=== PATIENT | female | born 1965 | race Caucasian/White ===

== ENCOUNTER 2017-04-29 18:01 | Emergency (ER) | payer OTHER ==
[~2017-04-29] VITALS: Ht 152.4 cm; Wt 43.1 kg
[~2017-04-29 18:01] MED LIST: ACCUNEB 0.0.63 MG/3 INH; ALENDRONATE SOD70 M1 PO; ALLERGY RELIEF4 MG PO; ATIVAN0.5 MG PO; ATIVAN1 MG PO; CITALOPRAM; CITALOPRAM20 MG PO; ELMIRON100 MG PO; FERROUS SULFAT325 M1 PO; FLEXERIL10 MG PO; FLOVENT 110 M110 MCG INH; FLOVENT0.11 MG/AC IH; FOLIC ACID1 MG PO; FOSAMAX70 MG PO; GABAPENTIN800 MG PO; HYDROCODONE BIT1 T11 PO; LANSOPRAZOLE; LEVOFLOXACIN500 MG PO; LOMOTIL 0.025 M1 TA1 PO; LORAZEPAM0.5 MG PO; LORAZEPAM1 MG PO; MACROBID100 M1 PO; MAXALT10 MG PO; MEDROL DOSEPAK4 MG PO; METOCLOPRAMIDE10 MG PO; MOTRIN600 MG PO; Meclizine25 MG PO; OMEPRAZOLE D/R20 MG PO; OMEPRAZOLE20 M2 PO; OSCAL,OYSTER S500 MG PO; PHENAZOPYRIDIN200 MG PO; PREDNISONE20 M1 PO; ROBITUSSIN AC 110 ML PO; ROPINIROLE; SENNA-GEN8.6 MG PO; SEROQUEL XR150 MG PO; SEROQUEL XR300 MG PO; SINGULAIR; SINGULAIR10 MG PO; SPIRIVA18 MCG; SPIRIVA18 MCG INH; SUMATRIPTAN SU100 MG PO; SWISS KRISS1 FLA PO; VICO75300 PO; VICODIN 5/500 505 MG PO; VITAMIN D2; ZITHROMAX Z PA250 MG PO; ZOLPIDEM; ZOLPIDEM TART5 MG PO
== END 2017-04-29 19:19 | disposition home or self-care (01) ==
LOC: ED 18:01
DX: H61.23 Impacted cerumen, bilateral (principal); J44.9 Chronic obstructive pulmonary disease, unspecified; F17.200 Nicotine dependence, unspecified, uncomplicated; Z79.899 Other long term (current) drug therapy

== ENCOUNTER → 2017-06-01 | Outpatient (CLI) | payer OTHER | END | disposition home or self-care (01) | LOC: RAD 14:23 | DX: M26.622 Arthralgia of left temporomandibular joint (principal); J02.9 Acute pharyngitis, unspecified; H92.02 Otalgia, left ear; R22.0 Localized swelling, mass and lump, head ==

== ENCOUNTER 2017-06-28 18:43 | Emergency (ER) | payer OTHER ==
[~2017-06-28] VITALS: Ht 152.4 cm; Wt 49.9 kg
[2017-06-28 19:19] LABS: BASO % 0.4 % (0.0-1.0); EOS % 0.2 % (1.0-4.0); HEMATOCRIT 39.2 % (37.0-47.0); HEMOGLOBIN 13.3 g/dl (12.0-16.0); LYMPH # 3.4 10*3/uL (1.3-4.4); MEAN CELL VOLUME 95.1 fl (81.0-99.0); MEAN CORPUSCULAR HGB 32.3 pg (27.0-31.0); MEAN CORPUSCULAR HGB CONC 33.9 g/dl (33.0-37.0); MEAN PLATELET VOLUME 8.1 fl (9.6-12.3); MONO # 0.5 10*3/uL (0.1-1.0); MONO % 5.4 % (3.0-9.0); NEUT % 59.6 % (47.0-73.0); PLATELET COUNT AUTOMATED 344 10*3/uL (130-400); RED BLOOD COUNT 4.12 10*6/uL (4.10-5.10); RED CELL DISTRI WIDTH 13.6 % (0-14.5)
[2017-06-28 19:37] LABS: ALBUMIN 3.5 gm/dl (3.1-4.5); ALKALINE PHOSPHATASE 95 U/L (45-117); BILIRUBIN, TOTAL 0.3 mg/dl (0.2-1.0); BUN 8 mg/dl (7-24); CARBON DIOXIDE 25 mmol/L (21-32); CHLORIDE 93 mmol/L (98-107); EST GLOM FILT AFRICAN AMERICAN > 60 ml/min; GLUCOSE 97 mg/dL (65-99); POTASSIUM 4.4 mmol/L (3.5-5.1); SGOT/AST 13 IU/L (3-35); SODIUM 128 mmol/L (136-145); TOTAL PROTEIN 7.1 gm/dL (6.4-8.2)
[2017-06-28 19:42] LABS: SGPT/ALT 12 U/L (12-78)
[2017-06-28 20:26] LABS: BILIRUBIN NEGATIVE (NEGATIVE); BLOOD TRACE-INTACT (NEGATIVE); CLARITY CLEAR (CLEAR); COLOR YELLOW (YELLOW); GLUCOSE NEGATIVE (NEGATIVE); KETONE TRACE (NEGATIVE); LEUKO ESTERASE NEGATIVE (NEGATIVE); NITRITE NEGATIVE (NEGATIVE); PROTEIN NEGATIVE (NEGATIVE); UROBILINOGEN 0.2 E.U./dl (0.2-1.0)
[2017-06-28 20:31] LABS: BACTERIA TRACE
== END 2017-06-28 20:44 | disposition home or self-care (01) ==
LOC: ED 18:43
PROVIDERS: Nurse Practitioner Family
DX: M26.629 Arthralgia of temporomandibular joint, unspecified side (principal); E87.1 Hypo-osmolality and hyponatremia; F17.200 Nicotine dependence, unspecified, uncomplicated; Z98.51 Tubal ligation status; Z79.899 Other long term (current) drug therapy

== ENCOUNTER → 2017-07-07 | Outpatient (CLI) | payer OTHER | END | disposition home or self-care (01) | LOC: MRI 06-25 10:00 | DX: M26.69 Other specified disorders of temporomandibular joint (principal) ==

== ENCOUNTER 2017-07-29 11:41 | Inpatient (IN) | payer OTHER ==
[~2017-07-29] VITALS: Ht 152 cm
[~2017-07-29 11:41] MED LIST changes: -ACCUNEB 0.0.63 MG/3 INH; +ACCUNEB 0.1.25 MG/1 INH; +CYCLOBENZAPRINE10 MG PO; -FLEXERIL10 MG PO; +FOSAMAX70 M1 PO; -FOSAMAX70 MG PO; +SINGULAIR10 M1 PO
[2017-07-29 11:45] VITALS: BP 124/73
[2017-07-29 12:15] LABS: BASO % 0.3 % (0.0-1.0); EOS # 0.1 10*3/uL (0.0-0.4); EOS % 0.5 % (1.0-4.0); HEMATOCRIT 40.1 % (37.0-47.0); HEMOGLOBIN 13.6 g/dl (12.0-16.0); LYMPH # 2.3 10*3/uL (1.3-4.4); LYMPH % 21.9 % (27.0-41.0); MEAN CELL VOLUME 94.6 fl (81.0-99.0); MEAN CORPUSCULAR HGB 32.1 pg (27.0-31.0); MEAN CORPUSCULAR HGB CONC 33.9 g/dl (33.0-37.0); MONO # 0.8 10*3/uL (0.1-1.0); NEUT # 7.5 10*3/uL (2.3-7.9); NEUT % 69.8 % (47.0-73.0); PLATELET COUNT AUTOMATED 319 10*3/uL (130-400); RED BLOOD COUNT 4.24 10*6/uL (4.10-5.10); RED CELL DISTRI WIDTH 13.6 % (0-14.5); WHITE BLOOD COUNT 10.7 10*3/uL (4.8-10.8)
[2017-07-29 12:28] LABS: BILIRUBIN 2+ (NEGATIVE); BLOOD 1+ (NEGATIVE); CLARITY CLEAR (CLEAR); COLOR YELLOW (YELLOW); GLUCOSE NEGATIVE (NEGATIVE); KETONE 2+ (NEGATIVE); LEUKO ESTERASE TRACE (NEGATIVE); NITRITE NEGATIVE (NEGATIVE); PH 5.5 (5.0-9.0); SPECIFIC GRAVITY 1.025 (1.005-1.030)
[2017-07-29 12:30] LABS: ALBUMIN 3.2 gm/dl (3.1-4.5); ALKALINE PHOSPHATASE 111 U/L (45-117); BUN 8 mg/dl (7-24); CHLORIDE 90 mmol/L (98-107); CREATININE 0.49 mg/dL (0.55-1.02); POTASSIUM 4.1 mmol/L (3.5-5.1); SGOT/AST 13 IU/L (3-35); SGPT/ALT 10 U/L (12-78); SODIUM 127 mmol/L (136-145); TOTAL PROTEIN 7.3 gm/dL (6.4-8.2)
[2017-07-29 12:42] LABS: RBC 16-20 rbc/hpf (0-2)
[2017-07-29 12:43] LABS: BACTERIA TRACE
--- NOTE | 2017-07-29 13:18 | NUR ---
PT REQUESTING TO GO OUT SIDE FOR A SMOKE. PT WAS INFORMED D/T IV SITE PT WOULD NOT BE PERMITTED TO LEAVE EMERGENCY DEPT. UNLESS FOR TESTING.
[2017-07-29 14:22] VITALS: BP 123/76
--- NOTE | 2017-07-29 15:29 | NUR ---
A 52, admitted to ICCU, under the services of REBEKAH Cornelius MD with a diagnosis of MASS, HYPONATREMIA. Chief complaint is SORE THROAT. Patient arrived via wheel chair from ER. Monitor applied. Initial assessment completed. Vital signs taken and recorded. REBEKAH CORNELIUS MD notified of admission to the unit. Orders received. See assessment for past medical history, medications and allergies. Patient and/or family oriented to unit. [facility] visitation policy reviewed. Clothing/patient valuable form completed. PETE PRESCOTT
[2017-07-29 15:35] VITALS: BP 124/82
[2017-07-29] MEDS ORDERED: ASPIRIN ADULT L81 M2 PO (15:42)
[2017-07-29] MEDS ORDERED: PROVENTIL HFA6.7 GM INH (15:44)
[2017-07-29] MEDS ORDERED: SEROQUEL XR300 MG PO (15:46)
--- NOTE | 2017-07-29 16:56 | NUR ---
Dr. Murray in to [facility]. Discussed transfer to [place] w/ pt. Agreeable. Sister Lisbeth and brother Torey were called and updated. Arrangement pending.
--- NOTE | 2017-07-29 18:46 | NUR ---
Dr. Mae was notified of consult and pt. pending transfer.
[2017-07-29 20:00] VITALS: BP 147/77
--- NOTE | 2017-07-29 23:38 | NUR ---
REPORT GIVEN TO VIKAS AT [facility].
--- NOTE | 2017-07-30 00:05 | NUR ---
PT TRANSFERRED TO [facility] VIA [facility], [facility]. SHE WAS PLEASANT, STABLE, AND IN NO DISTRESS AT TIME OF DEPARTURE. COPIES OF RECORDS SENT WITH [facility] STAFF. I NOTIFIED VIKAS AT [facility] THAT PT WAS ON HER WAY TO [facility] UNDER CARE OF DR PYLE.
== END 2017-07-30 00:05 | disposition short-term general hospital (02) | DRG 155 ==
LOC: ED 11:41 → EDHOLD 14:58 → ICCU 15:07
PROVIDERS: Nurse Practitioner Family; ADMIT Internal Medicine
DX: J38.3 Other diseases of vocal cords (principal); R65.10 Systemic inflammatory response syndrome (SIRS) of non-infectious origin without acute organ dysfunction; E87.8 Other disorders of electrolyte and fluid balance, not elsewhere classified; E87.1 Hypo-osmolality and hyponatremia; R82.2 Biliuria; H92.03 Otalgia, bilateral; R07.0 Pain in throat; R00.0 Tachycardia, unspecified; R06.82 Tachypnea, not elsewhere classified; D72.810 Lymphocytopenia; R73.9 Hyperglycemia, unspecified; R82.4 Acetonuria; R31.9 Hematuria, unspecified; J44.9 Chronic obstructive pulmonary disease, unspecified; F31.9 Bipolar disorder, unspecified; F41.9 Anxiety disorder, unspecified; K21.9 Gastro-esophageal reflux disease without esophagitis; H40.9 Unspecified glaucoma; F17.210 Nicotine dependence, cigarettes, uncomplicated; Z98.51 Tubal ligation status; Z82.49 Family history of ischemic heart disease and other diseases of the circulatory system; Z80.1 Family history of malignant neoplasm of trachea, bronchus and lung; Z83.6 Family history of other diseases of the respiratory system